=== PATIENT | female | born 1970 | race Caucasian/White ===

== ENCOUNTER → 2016-12-01 | Outpatient (CLI) | payer OTHER | LOC: RAD 12:49 | PROVIDERS: ATTEND Family Medicine | DX: N64.4 Mastodynia (principal) | CPT/HCPCS: 76642; G0204 ==

== ENCOUNTER → 2016-12-18 | Outpatient (CLI) | payer OTHER ==
[2016-12-18 14:40] LABS: BASOPHILS % (AUTO) 0 % (0-2); EOSINOPHILS # (AUTO) 0.1 10^3uL; EOSINOPHILS % (AUTO) 2 % (0-4); LYMPHOCYTES # (AUTO) 1.3 X10^3; MEAN CORPUSCULAR HEMOGLOBIN 30.4 PG (26.0-34.0); MEAN CORPUSCULAR HGB CONC 34.8 g/dL (31.0-37.0); MEAN CORPUSCULAR VOLUME 88 FL (80-100); MEAN PLATELET VOLUME 10.1 FL (6.0-9.5); MONOCYTES # (AUTO) 0.4 X10^3; MONOCYTES % (AUTO) 8 % (3-11); NEUTROPHILS # (AUTO) 3.5 X10^3; NEUTROPHILS % (AUTO) 66 % (51-67); PLATELET COUNT 193 10^3uL (150-450); WHITE BLOOD COUNT 5.33 10^3uL (4.0-11.0)
[2016-12-18 14:50] LABS: ALBUMIN 4.5 g/dL (3.4-5.0); ANION GAP 11.8 MEQ/L (3-15); CALCULATED IONIZED CALCIUM 3.9 mg/dL (3.8-4.6); TOTAL PROTEIN 7.7 g/dL (6.4-8.5)
== END ==
LOC: LAB 14:30
PROVIDERS: ATTEND Surgery
DX: R19.7 Diarrhea, unspecified (principal)
CPT/HCPCS: 36415; 80053; 84443; 85025

== ENCOUNTER → 2016-12-20 | Outpatient (CLI) | payer OTHER ==
[~2016-12-20] MED LIST: BUPR150T9 PO; CEPH-507 PO; DOCO200C4 PO; LACT1CAP8 PO; PSYL0.5243 PO; VITA1TAB17 PO; [UNRECOGNIZED DRUG - CODE] PO
== END ==
LOC: LAB 19:02
PROVIDERS: ATTEND Surgery
DX: R19.7 Diarrhea, unspecified (principal)
CPT/HCPCS: 87507

== ENCOUNTER 2016-12-22 09:09 | Day surgery (SDC) | payer OTHER ==
[~2016-12-22] VITALS: Ht 162.6 cm; Wt 57.0 kg
[~2016-12-22 09:09] MED LIST changes: -DOCO200C4 PO; -LACT1CAP8 PO; +LACTATED RINGERS 1,000 ML IV SCH; -PSYL0.5243 PO; +SODIUM CHLORIDE FLUSH 3 ML SYR IV PRN; -VITA1TAB17 PO; -[UNRECOGNIZED DRUG - CODE] PO
--- OUTSIDE RECORDS SUMMARY | 2016-12-22 09:12 | XMS REPORT | Continuity of Care Document ---
Author Author [facility] Organization [facility] Address Unknown Phone Unavailable Care Team Providers Care Hvac Operations Technician Name Role Phone ZAHIRA DEVINE MD PCP [phone] Insurance Providers Payer Name Policy Number Subscriber Name Relationship [employer] [id number] Ermelinda Adams 17 Self / Same As Patient Chief Complaint and Reason for Visit Chief Complaint Laceration Reason for Visit Laceration Problems Medical Problems Problem Onset Date Status Laceration ~03/01/2015 Active Medications Medication Dose Route Sig Days/Qty Instructions Order Date Discontinued Date Status [none] 03/01/15 Active Cephalexin 500 Mg ORAL FOUR TIMES DAILY 20 Qty 03/01/15 Active Social History No social history. Hospital Discharge Instructions No hospital discharge instructions. Plan of Care Discharge Date 03/01/15 11:25pm Disposition 01 HOME OR SELF-CARE Condition at Discharge Stable Instructions/Education Provided Suture Care (ED) Laceration (ED) Prescriptions See Medications Section Referrals ZAHIRA DEVINE MD Additional Instructions/Education Follow up with your doctor in 2 days. Routine wound care, as described. Keflex as directed. ED TREMAINE if any sign of infection. Sutures out in 2 weeks, or as directed by your doctor. Some of your test results may not be complete prior to your leaving the Emergency Department. The Emergency Department is not authorized to give test results over the phone. Please contact the doctor's office listed in this packet of information for your final results. Follow up with your primary care physician or return to the Emergency Department for worsening or worrisome symptoms. * Emergency Department phone number: [phone], x [phone]* MEDICAL RECORD If you need copies of your X-rays, call [phone]. If you need copies of your medical record, including lab results, a signed authorization for release of records will be required. A telephone call for release of Health Information is not allowed. BILLING Billing can sometimes be confusing and frustrating. To help avoid confusion in the future, please take a moment to acquaint yourself with the billing parties for services. SERVICE BILLING [facility] Phys[facility] Patients will receive bills for services from the appropriate provider. If you have any questions about your bill, our staff will be happy to assist you. Please call [phone], and ask for the billing department. THANK YOU for choosing as your emergency care provider! Functional Status No functional status results. Allergies, Adverse Reactions, Alerts Allergen Type Severity Reaction Status Last Updated No Known Drug Allergies Active 03/01/15 Immunizations No immunization records. Vital Signs Acute Vital Signs Vital Response Date/Time Temperature (Fahrenheit) 98.5 Pulse 89 bpm Respirations 20 Height 5 ft 4 in Weight 130 lb Body Mass Index 22.0 kg/m^2 Results No known relevant diagnostic tests, laboratory data and/or discharge summary. Procedures No known history of procedures. Encounters Encounter Location Date/Time Departed Emergency Room 03/01/15 9:40pm Recent Diagnosis
[2016-12-22 09:22] VITALS: BP 109/70
[2016-12-22] MEDS ORDERED: VITA1TAB17 PO (09:47)
[2016-12-22] MEDS ORDERED: LACT1CAP8 PO (09:47)
[2016-12-22] MEDS ORDERED: [UNRECOGNIZED DRUG - CODE] PO (09:47)
[2016-12-22] MEDS ORDERED: PSYL0.5243 PO (09:47)
[2016-12-22] MEDS ORDERED: DOCO200C4 PO (09:47)
[2016-12-22] MEDS ORDERED: MIDAZOLAM 2 MG/2 ML (VERSED) VIAL ONE (10:32)
[2016-12-22] MEDS ORDERED: PROPOFOL 20 ML IV ONE (10:32)
[2016-12-22 11:25] VITALS: BP 113/77
[2016-12-22 12:01] VITALS: BP 99/72
--- NOTE | 2016-12-22 12:27 | OPERATIVE REPORT ---
DATE OF OPERATION: 12/22/2016 PRE-OPERATIVE DIAGNOSIS: Diarrhea. POST-OPERATIVE DIAGNOSIS: Normal colon. OPERATIVE PROCEDURE: Total colonoscopy with segmental colon biopsies. SURGEON: Kulwinder Styles M.D. ANESTHESIA: IV conscious sedation, monitored anesthesia services. POSITION: Left lateral decubitus. ESTIMATED BLOOD LOSS: Minimal. FINDINGS: 1. Significant tortuosity of the sigmoid colon. 2. Good colon prep. 3. Normal colon mucosa. OPERATIVE NOTE: Following satisfactory induction of analgesia a digital rectal exam was performed. This revealed normal sphincter tone with no palpable rectal mass. Next the colonoscope was introduced per rectum and advanced under CO2 insufflation and direct vision to the cecum. The cecum was identified by the convergence of the teniae, ileocecal valve, and palpation/transillumination of the right lower quadrant. The above findings were noted. Multiple attempts to intubate the terminal ileum were unsuccessful. The above areas were carefully inspected again as the scope was slowly withdrawn. Extrusion Press Supervisor photographs were obtained. Multiple biopsies were obtained of each colon segment using cold biopsy forceps and submitted separately to pathology. Good hemostasis was noted at the biopsy sites. No polyps or other mucosal abnormalities were identified. Retroflexed view of the rectum was normal. Excess insufflated CO2 was evacuated and the scope removed. The patient tolerated the procedure well and transferred to recovery in stable condition. RECOMMENDATIONS: Pending stool studies and biopsy results, we will schedule a small bowel follow through for further evaluation of the patient's diarrhea and she will return to office for follow up.
== END 2016-12-22 12:11 | disposition home or self-care (01) ==
LOC: ASC 09:09
PROVIDERS: ATTEND Surgery
DX: K52.832 Lymphocytic colitis (principal); Q43.8 Other specified congenital malformations of intestine
CPT/HCPCS: 45380; J2250; J7120

== ENCOUNTER → 2016-12-27 | Outpatient (CLI) | payer OTHER ==
[~2016-12-27] MED LIST changes: +DOCO200C4 PO; +LACT1CAP8 PO; -LACTATED RINGERS 1,000 ML IV SCH; +PSYL0.5243 PO; -SODIUM CHLORIDE FLUSH 3 ML SYR IV PRN; +VITA1TAB17 PO; +[UNRECOGNIZED DRUG - CODE] PO
--- NOTE | 2016-12-27 14:13 | Diagnostic Imaging Report ---
INDICATION: Diarrhea. [employer] radiograph reveals normal bowel gas pattern. There is no evidence of bowel obstruction. No free intraperitoneal gas or pneumatosis is identified. There are numerous calcified phleboliths in the pelvis, bilaterally. No pathologic calcification is seen. Patient ingested liquid barium. Overhead images reveal rapid progression of contrast through the small bowel. Within 30 minutes, contrast reaches the terminal ileum. Spot compression images of the terminal ileum reveal no stricture or mural thickening. IMPRESSION: Unremarkable small bowel series apart from rapid transit time of 30 minutes. Dictated by: Dictated on workstation # [id number]
== END ==
LOC: RAD 09:39
PROVIDERS: ATTEND Surgery
DX: R19.7 Diarrhea, unspecified (principal)
CPT/HCPCS: 74250